=== PATIENT | male | born 1970 | race Caucasian/White ===

== ENCOUNTER 2017-12-04 07:16 | Outpatient (CLI) | payer OTHER ==
--- NOTE | 2017-12-04 10:01 | Ultrasound Report ---
DATE OF SERVICE: 12/04/2017 COMPLETE ABDOMINAL ULTRASOUND: 12/04/2017 CLINICAL INDICATION: Pain. TECHNIQUE: Real-time scanning was performed with manufacturers representative static images obtained. FINDINGS: The liver measures 13.5 cm. Hepatic echogenicity is normal. No intrahepatic biliary dilatation or focal parenchymal lesion is present. The common bile duct measures 4 mm. The gallbladder is normal, as is the visualized pancreas. The kidneys are normal, with the right measuring 9.5 cm, and the left measuring 10.7 cm. No hydronephrosis or nephrolithiasis is identified. The spleen measures 11 cm, and demonstrates normal echotexture. The abdominal aorta is normal in caliber. The inferior vena cava is unremarkable. No free fluid is present. IMPRESSION: NORMAL ABDOMINAL ULTRASOUND. TD: 12/04/2017 11:00
== END 2017-12-04 07:17 | disposition home or self-care (01) ==
LOC: DI 07:16
PROVIDERS: ATTEND Internal Medicine
DX: R10.9 Unspecified abdominal pain (principal)
CPT/HCPCS: 76700

== ENCOUNTER 2019-06-13 07:40 | Outpatient (CLI) | payer OTHER ==
--- NOTE | 2019-06-13 19:13 | MRI Report ---
Reason: KNEE PAIN, LEFT Procedure Date: 06/13/2019 Accession Number: [id number] / [id number] Procedure: MRI - Knee LT W/O CPT Code: FULL RESULT: EXAM: LEFT KNEE MRI WITHOUT CONTRAST EXAM DATE: 06/13/2019 08:45 AM. CLINICAL HISTORY: KNEE PAIN, LEFT. Continued lateral knee pain since injury December 2018. COMPARISON: KNEE 3 VIEW LT 05/06/2019 8:44 AM. TECHNIQUE: Multiplanar, multisequence T1-weighted and fluid-sensitive sequences of the knee without contrast. Other: None. FINDINGS: Bones: No fractures or subluxations. No marrow edema. No bone lesions. Articular Cartilage: Unremarkable. Medial Meniscus: The medial meniscus is intact. Lateral Meniscus: The lateral meniscus is intact. Cruciate Ligaments: The anterior and posterior cruciate ligaments are intact. Collateral Ligaments: The medial collateral and lateral collateral ligamentous structures are intact. Tendons: The quadriceps, patellar, semimembranosus, and popliteus tendons are unremarkable. Musculature: No edema or fatty atrophy. Other: No effusion. No popliteal cyst. No loose bodies. The medial and lateral retinacula are intact. The subcutaneous tissues and fat pads are unremarkable. IMPRESSION: Negative for meniscus tear or internal derangement. RADIA
== END 2019-06-13 07:41 | disposition home or self-care (01) ==
LOC: DI 07:40
PROVIDERS: ATTEND Orthopaedic Surgery Sports Medicine
DX: M25.562 Pain in left knee (principal)

== ENCOUNTER 2020-09-29 06:43 | Outpatient (CLI) | payer OTHER, MEDICAID ==
--- NOTE | 2020-09-29 10:32 | Ultrasound Report ---
PROCEDURE: Abdomen Complete INDICATIONS: ABD PAIN TECHNIQUE: Real-time scanning was performed of the abdominal and retroperitoneal organs, with image documentatio n. COMPARISON: Prior abdominal ultrasound 12/04/2017. FINDINGS: Liver: Liver is normal in size and homogeneous in echotexture, mildly hyperechoic consistent with fa tty infiltration. Gallbladder: The gallbladder appears normal. Biliary ducts: Intrahepatic bile ducts are non-dilated. Extrahepatic bile duct caliber measures 3.9 mm. Normal is 6-7 mm or less in diameter, or 10 mm or less post-cholecystectomy. Pancreas: Visualized portions of the pancreas are sonographically normal. Spleen: Spleen is normal in size and homogeneous in echotexture. Kidneys: Kidneys are normal in size and echotexture. Right kidney measures 9.9 cm long; left kidney measures 10.0 cm long. No hydronephrosis or nephrolithiasis. No solid masses. Aorta: Visualized aorta is normal in caliber at less than 3 cm. Iliacs: Proximal common iliac arteries are normal in caliber at less than 2.5 cm. IVC: Intrahepatic inferior vena cava is patent. Miscellaneous: No free abdominal fluid. IMPRESSION: Hepatic steatosis, no focal liver lesions seen. No sign of gallstones or biliary distention. Source o f current abdominal pain greater on the left than the right is not found. Reviewed by: Amrit Caba MD on 09/29/2020 10:31 AM PST Approved by: Amrit Caba MD on 09/29/2020 10:31 AM PST Station ID: [id number]
== END 2020-09-29 06:44 | disposition home or self-care (01) ==
LOC: DI 06:43
PROVIDERS: ATTEND Internal Medicine
DX: R10.9 Unspecified abdominal pain (principal); K76.0 Fatty (change of) liver, not elsewhere classified
CPT/HCPCS: 76700

== ENCOUNTER 2022-02-15 08:44 | Emergency (ER) | payer OTHER, MEDICAID ==
[2022-02-15] MEDS ORDERED: ONDANSETRON ODT 4 MG TABLET TL STA (08:52)
[2022-02-15 09:03] LABS: BASOPHILS % (AUTO) 0.2 %; EOSINOPHILS % (AUTO) 0.2 %; HCT - HEMATOCRIT 47.7 % (42.0-52.0); HGB - HEMOGLOBIN 16.8 g/dL (14.0-18.0); LYMPHOCYTES # (AUTO) 0.8 10^3/uL (1.5-3.5); LYMPHOCYTES % (AUTO) 7.8 %; MEAN CORPUSCULAR HEMOGLOBIN 30.7 pg (27.0-31.0); MEAN CORPUSCULAR HGB CONC 35.2 g/dL (32.0-36.0); MEAN PLATELET VOLUME 9.3 fL (7.4-11.4); MONOCYTES # (AUTO) 0.4 10^3/uL (0.0-1.0); MONOCYTES % (AUTO) 4.3 %; NEUTROPHILS # (AUTO) 8.8 10^3/uL (1.5-6.6); NEUTROPHILS % (AUTO) 87.2 %; PLT - PLATELET COUNT 238 10^3/uL (130-450); RED BLOOD COUNT 5.48 10^6/uL (4.70-6.10); RED CELL DISTRIBUTION WIDTH 12.2 % (12.0-15.0); WHITE BLOOD COUNT 10.1 x10^3/uL (4.8-10.8)
[2022-02-15 09:18] LABS: ALBUMIN 4.7 g/dL (3.2-5.5); ALBUMIN/GLOBULIN RATIO 1.3 (1.0-2.2); BILIRUBIN,TOTAL 1.1 mg/dL (0.2-1.0); CALCIUM 9.8 mg/dL (8.5-10.3); CREATININE 1.7 mg/dL (0.6-1.2); POTASSIUM 4.2 mmol/L (3.5-5.0); TOTAL PROTEIN 8.4 g/dL (6.7-8.2)
--- NOTE | 2022-02-15 10:20 | ED Physician Documentation ---
PD HPI ABD PAIN - Stated complaint Stated Complaint: R SIDE PX/NAUSEA - Chief complaint Chief Complaint: Abd Pain - History obtained from History obtained from: Patient - History of Present Illness Timing - onset: How many hours ago (few) Timing - duration: Hours (few) Timing - details: Abrupt onset, Still present Quality: Aching, Sharp, Pain Location: RLQ Radiation: Right flank Improved by: No: Laying still Worsened by: No: Moving, Breathing Associated symptoms: Nausea, Vomiting. No: Fever, Diarrhea, Constipation, Dysuria Similar symptoms before: Diagnosis (feels similar to kidney stone in the past. Only one prior and it was 22 mm and needed stent and lithotripsy.) Recently seen: Not recently seen Review of Systems Constitutional: denies: Fever, Chills Nose: denies: Rhinorrhea / runny nose, Congestion Throat: denies: Sore throat Respiratory: denies: Cough GI: reports: Abdominal Pain, Nausea, Vomiting. denies: Constipation, Diarrhea : denies: Dysuria, Frequency Musculoskeletal: denies: Extremity swelling Neurologic: denies: Generalized weakness, Near syncope PD PAST MEDICAL HISTORY - Past Medical History Past Medical History: Yes Cardiovascular: None Respiratory: None Neuro: None Endocrine/Autoimmune: None GI: None : Kidney stones (one prior one that needed lithotripsy.) HEENT: None Psych: None Musculoskeletal: None Derm: None - Past Surgical History Past Surgical History: Yes - Present Medications Home Medications: Ambulatory Orders Medication Instructions Recorded Confirmed Ondansetron Odt [Zofran] 4 mg TL Q6H PRN #10 tablet 02/15/22 Oxycodone HCl/Acetaminophen 1 each PO Q6H PRN #15 tablet 02/15/22 [Percocet 5-325 mg Tablet] Tamsulosin [Flomax] 0.4 mg PO DAILY #5 cap 02/15/22 dexAMETHasone [Decadron] 4 mg PO DAILY #5 tablet 02/15/22 - Allergies Allergies/Adverse Reactions: Allergies Allergy/AdvReac Type Severity Reaction Status Date / Time No Known Drug Allergies Allergy Verified 02/15/22 08:50 - Social History Does the pt smoke?: No Smoking Status: Never smoker Does the pt drink ETOH?: No Does the pt have substance abuse?: No - Immunizations Immunizations are current?: Yes PD ED PE NORMAL - Vitals Vital signs reviewed: Yes - General General: Alert and oriented X 3, Well developed/nourished, Other (appears in considerable pain) - Neck Neck: Supple, no meningeal sign, No adenopathy - Cardiac Cardiac: RRR, No murmur - Respiratory Respiratory: Clear bilaterally - Abdomen Abdomen: Normal bowel sounds, Soft, Non distended, No organomegaly, Other (minimal tenderness RLQ without guarding nor percussion tenderness. ) - Male Male : Deferred - Rectal Rectal: Deferred - Back Back: Other (right CVA tender to light percussion. ) - Derm Derm: Normal color, Warm and dry - Extremities Extremities: Normal ROM s pain, No edema, No calf tenderness / cord - Neuro Neuro: Alert and oriented X 3, No motor deficit, Normal speech Results - Vitals Vitals: Vital Signs - 24 hr 02/15/22 02/15/22 02/15/22 08:50 09:14 09:19 Temperature 36.6 C 36.6 C 37.1 C Heart Rate 77 77 74 Respiratory 17 17 16 Rate Blood Pressure 141/91 H 141/91 H 147/107 H O2 Saturation 99 99 100 02/15/22 02/15/22 11:46 12:30 Temperature 36.9 C 36.6 C Heart Rate 67 87 Respiratory 16 16 Rate Blood Pressure 130/89 H 124/91 H O2 Saturation 99 97 Oxygen O2 Source Room air - Labs Labs: Laboratory Tests 02/15/22 02/15/22 02/15/22 08:59 08:59 10:40 WBC 10.1 RBC 5.48 Hgb 16.8 Hct 47.7 MCV 87.0 MCH 30.7 MCHC 35.2 RDW 12.2 Plt Count 238 MPV 9.3 Neut # (Auto) 8.8 H Lymph # (Auto) 0.8 L Blaine # (Auto) 0.4 Eos # (Auto) 0.0 Baso # (Auto) 0.0 Absolute Nucleated RBC 0.00 Nucleated RBC % 0.0 Sodium 140 Potassium 4.2 Chloride 104 Carbon Dioxide 24 Anion Gap 12.0 BUN 24 H Creatinine 1.7 H Estimated GFR (MDRD) 43 L Glucose 144 H Calcium 9.8 Total Bilirubin 1.1 H AST 23 ALT 23 Alkaline Phosphatase 66 Total Protein 8.4 H Albumin 4.7 Globulin 3.7 Albumin/Globulin Ratio 1.3 Lipase 36 Urine Color YELLOW Urine Clarity CLOUDY Urine pH 7.5 Ur Specific Newcomb 1.020 Urine Protein NEGATIVE Urine Glucose (UA) NEGATIVE Urine Ketones TRACE Urine Occult Blood MODERATE H Urine Nitrite NEGATIVE Urine Bilirubin NEGATIVE Urine Urobilinogen 0.2 (NORMAL) Ur Leukocyte Esterase NEGATIVE Urine RBC 0-5 Urine WBC 0-3 Ur Squamous Epith Cells RARE Squamous Amorphous Sediment Marked Urine Bacteria Few Ur Microscopic Review INDICATED Urine Culture Comments NOT INDICATED - Rads (name of study) abd/pelvic CT Radiology: Prelim report reviewed (4 mm stone distal right ureter with mild to moderate hydroureter and hydronephrosis. ), See rad report PD MEDICAL DECISION MAKING - ED course Complexity details: reviewed results (passable size stone distal ureter. ), re- evaluated patient (much improved with IV fluids and meds. ), considered differential (sounds likely kidney stone, but will get imaging to ensure and since his prior one needed surgical intervention years ago. ), d/w patient Departure - Departure Disposition: 01 Home, Self Care Clinical Impression: Right sided abdominal pain, Ureterolithiasis Condition: Stable Instructions: ED Stone Renal W Colic Follow-Up: Nanci Salinas MD [Primary Care Provider] - Tyler Leslie MD [Provider Admit Priv/Credential] - Prescriptions: dexAMETHasone [Decadron] 4 mg PO DAILY #5 tablet Tamsulosin [Flomax] 0.4 mg PO DAILY #5 cap Oxycodone HCl/Acetaminophen [Percocet 5-325 mg Tablet] 1 each PO Q6H PRN #15 tablet PRN Reason: pain Ondansetron Odt [Zofran] 4 mg TL Q6H PRN #10 tablet PRN Reason: Nausea / Vomiting Comments: You do have a 4.5 mm stone at the right ureter almost into the bladder. I would anticipate this passing the rest of the way in the next several days or hopefully sooner. Adequate hydration. You do not need to over hydrate per se but just stay well- hydrated. Use anti-inflammatories as directed. Add ondansetron if needed for nausea. Tamsulosin daily for the next 5 days to reduce ureteral spasming. Add Tylenol every 4-6 hours if needed for pain or Percocet if needed for worse pain. I transmitted your prescriptions to [facility]. Follow-up with your primary care or Dr. Leslie urology if not improved over the next several days. Return if worse. I am prescribing a short course of narcotic pain medication for you. These are potentially dangerous and addictive medications that should be used carefully. These medications may constipate you. Take an [id number] stool softener such as docusate twice daily with plenty of water while taking these medications. If you go 24 hours without a bowel movement, take [id number] MiraLAX, per package instructions. Do not drink or drive while taking these medications. If you received narcotic or sedating medications while in the emergency department do not drive for 24 hours. Store this medication in a safe, secure place and out of reach of children. It is a violation of federal law to give or sell this medication to another person or to use in a manner other than prescribed. The ED will not refill narcotic prescriptions, including prescriptions lost or stolen. You can dispose of unwanted medications at the [facility]'s office or at several pharmacies such as [facility]. Discharge Date/Time: 02/15/22 12:31
[2022-02-15] MEDS ORDERED: SODIUM CHLORIDE 0.9% 1,000 ML IV STA (10:29)
[2022-02-15] MEDS ORDERED: HYDROmorphone 1 MG/ML CARPUJECT IVP STA (10:29)
[2022-02-15] MEDS ORDERED: KETOROLAC 15 MG/ML VIAL IVP STA (10:29)
[2022-02-15] MEDS ORDERED: ONDANSETRON 4 MG/2 ML VIAL IVP STA (10:29)
[2022-02-15] MEDS ORDERED: IOVERSOL 320 100 ML VIAL IVP ONE ×2 (10:42→11:02)
[2022-02-15 10:47] LABS: BILIRUBIN,URINE NEGATIVE (NEGATIVE); GLUCOSE, URINE (UA) NEGATIVE (NEGATIVE); KETONES,URINE (UA) TRACE mg/dL (NEGATIVE); LEUKOCYTE ESTERASE, URINE NEGATIVE (NEGATIVE); NITRITE,URINE NEGATIVE (NEGATIVE); OCCULT BLOOD,URINE MODERATE (NEGATIVE); PH,URINE 7.5 PH (5.0-7.5); PROTEIN,URINE NEGATIVE (NEGATIVE); UROBILINOGEN,URINE 0.2 (NORMAL) E.U./dL (NORMAL)
[2022-02-15 10:49] LABS: CLARITY,URINE CLOUDY (CLEAR)
[2022-02-15 10:56] LABS: AMORPHOUS SEDIMENT,UR Marked /LPF; BACTERIA,URINE Few /HPF (None Seen); RBC,URINE 0-5 /HPF (0-5); SQUAMOUS EPITHELIAL CELL,UR RARE Squamous (<= Few); WBC,URINE 0-3 /HPF (0-3)
--- NOTE | 2022-02-15 11:20 | CT Report ---
PROCEDURE: Abdomen/Pelvis W INDICATIONS: right abd/flank pain for 5 days CONTRAST: IV CONTRAST: Optiray 320 ml: 100 PO CONTRAST: *NO PO CONTRAST TECHNIQUE: After the administration of IV contrast, 5 mm thick sections acquired from the diaphragms to the symp hysis. 5 mm thick coronal and sagittal reformats were acquired. For radiation dose reduction, the f ollowing was used: automated exposure control, adjustment of mA and/or kV according to patient size. COMPARISON: Ultrasound abdomen 09/29/2020, CT abdomen pelvis 07/06/2016 FINDINGS: Image quality: Excellent. ABDOMEN: Lung bases: Partially visualized 4 mm right middle lobe nodule series 4 image 1. This area was not in cluded within the [id number] on prior exams. Heart size is normal. Solid organs: Liver and spleen are normal in size and enhancement. Mild hepatic steatosis is present . Gallbladder is unremarkable Biliary system is non dilated. Pancreas enhances normally. No adrenal nodules. Kidneys demonstrate normal size and enhancement. There is mild right perinephric fluid. Mil d to moderate right hydronephrosis and hydroureter are present. There is a 4 mm calcification Hounsfi eld units approximately 300 in the distal right ureter approximately 5 mm from the UVJ. Peritoneum and bowel: Bowel loops demonstrate normal wall thickness and caliber. No free fluid or a ir. Scattered diverticula are present without associated inflammatory change. Nodes and vessels: No retroperitoneal or mesenteric adenopathy by size criteria. Aorta and inferior vena cava are normal in size. Miscellaneous: No ventral hernias. PELVIS: Genitourinary: Bladder wall thickness is normal. Miscellaneous: No inguinal hernias or adenopathy. Bones: No suspicious bony lesions. No vertebral body compression fractures. IMPRESSION: Mild to moderate right hydronephrosis with perinephric fluid and a 4 mm calcification in the distal r ight ureter. Diverticulosis. Reviewed by: Madelin De Jesus MD on 02/15/2022 11:19 AM PDT Approved by: Madelin De Jesus MD on 02/15/2022 11:19 AM PDT Station ID: [id number]
[2022-02-15] MEDS ORDERED: TAMSULOSIN 0.4 MG CAPSULE PO STA (11:28)
[2022-02-15] MEDS ORDERED: DEXAMETHASONE 10 MG/ML VIAL IVP STA (11:28)
[2022-02-15 12:32] VITALS: BP 124/91
== END 2022-02-15 12:31 | disposition home or self-care (01) ==
LOC: ED 08:44
DX: N20.1 Calculus of ureter (principal)
CPT/HCPCS: 36415; 74177; 80053; 81001; 83690; 85025; 96374; 96375; 99284; 99285; A9270; J1170; Q0162; Q9967; 81003; 87086